=== PATIENT | male | born 1945 | race Caucasian/White ===

== ENCOUNTER → 2020-09-05 | Outpatient (CLI) | payer OTHER ==
[~2020-09-05] MED LIST: CHOL10003 PO; COLC0.6T50 PO; FINA5TAB4 PO; TAMS-11 PO; ZINC PO
[2020-09-05 10:45] LABS: BASOPHILS % (AUTO) 1 % (0-1); EOSINOPHILS % (AUTO) 1 % (1-7); LYMPHOCYTES % (AUTO) 22 % (22-44); MD NO; MEAN CORPUSCULAR HEMOGLOBIN 30.2 pg (27.5-34.5); MEAN CORPUSCULAR HGB CONC 34.7 g/dL (33.2-36.2); MEAN PLATELET VOLUME 8.4 fL (7.4-10.4); MONOCYTES % (AUTO) 10 % (2-9); NEUTROPHILS % (AUTO) 66 % (42-75); PLATELET COUNT 187 x10^3/uL (130-400); RED BLOOD COUNT 4.88 x10^6/uL (4.38-5.82); RED CELL DISTRIBUTION WIDTH 13.9 % (9.4-14.8)
[2020-09-05 10:48] LABS: MICROSCOPIC NOT IND
[2020-09-05 10:53] LABS: ALANINE AMINOTRANSFERASE 22 U/L (12-78); ALBUMIN 4.3 g/dL (3.4-5.0); ANION GAP 5 mmol/L (5-15); CHLORIDE 110 mmol/L (98-107); CREATININE 1.31 mg/dL (0.7-1.3)
[2020-09-05 10:54] LABS: INTERNATIONAL NORMALIZED RATIO 1.09 (0.93-1.1); PROTHROMBIN TIME 11.6 Seconds (9.6-11.5)
[2020-09-05 10:55] LABS: ALKALINE PHOSPHATASE 52 U/L (45-117); BILIRUBIN,TOTAL 1.1 mg/dL (0.2-1.0); TOTAL PROTEIN 7.4 g/dL (6.4-8.2)
== END | disposition home or self-care (01) ==
LOC: STAR 08:57
PROVIDERS: ATTEND Neurological Surgery
DX: Z01.812 Encounter for preprocedural laboratory examination (principal); Z01.811 Encounter for preprocedural respiratory examination; Z20.822 Contact with and (suspected) exposure to COVID-19; Z01.810 Encounter for preprocedural cardiovascular examination; M47.892 Other spondylosis, cervical region; M48.02 Spinal stenosis, cervical region; R79.1 Abnormal coagulation profile; R82.90 Unspecified abnormal findings in urine; R94.31 Abnormal electrocardiogram [ECG] [EKG]; I77.810 Thoracic aortic ectasia; M50.321 Other cervical disc degeneration at C4-C5 level
CPT/HCPCS: 71046; 72052; 80053; 81003; 85025; 85610; 85730; 87635; 93005

== ENCOUNTER 2020-09-11 08:06 | Inpatient (IN) | payer OTHER ==
[~2020-09-11] VITALS: Ht 177.8 cm; Wt 83.6 kg
[~2020-09-11 08:06] MED LIST changes: +BACITRACIN 50,000 UNIT ONE; +BUPIVACAINE/PF 0.25% ONE; +EPINEPHRINE 1 MG/ML, 1ML ONE; +VANCOMYCIN 1,000 MG ONE
[2020-09-11] MEDS ORDERED: FENTANYL PF 250 MCG/5ML ONE ×2 (08:18→12:22)
[2020-09-11] MEDS ORDERED: PROPOFOL 10 MG/ML, 20ML ONE (08:28)
[2020-09-11] MEDS ORDERED: DEXAMETHASONE 4 MG/ML, 1ML ONE (08:28)
[2020-09-11] MEDS ORDERED: CEFAZOLIN 1,000 MG ONE (08:28)
[2020-09-11] MEDS ORDERED: ONDANSETRON 2MG/ML, 2ML ONE (08:28)
[2020-09-11] MEDS ORDERED: GLYCOPYRROLATE 0.2MG/1ML, 5ML ONE (08:28)
[2020-09-11] MEDS ORDERED: SUCCINYLCHOLINE 20 MG/ML, 10ML ONE (08:28)
[2020-09-11] MEDS ORDERED: ROCURONIUM 10MG/ML,5ML ONE (08:28)
[2020-09-11] MEDS ORDERED: NEOSTIGMINE 1 MG/ML, 10ML ONE (08:28)
[2020-09-11] MEDS ORDERED: CHLORHEXIDINE 15 ML UDC MM ONE (08:30)
[2020-09-11] MEDS ORDERED: LACTATED RINGERS 1,000 ML IV SCH (08:30)
[2020-09-11 08:33] VITALS: BP 149/83
[2020-09-11] MEDS ORDERED: REMIFENTANIL 2 MG ONE (09:20)
[2020-09-11] MEDS ORDERED: PHENYLEPHRINE 10 MG/ML ONE (09:51)
[2020-09-11] MEDS ORDERED: BACITRACIN OINT 500U/GM, 15 GM ONE (12:25)
[2020-09-11] MEDS ORDERED: FENTANYL PF 100 MCG/2ML ONE (13:27)
[2020-09-11] MEDS ORDERED: OXYcodone 5 MG/5 ML ORAL.SOL UDC ONE (13:27)
[2020-09-11] MEDS ORDERED: ACETAMINOPHEN 650 MG/20.3 ML UDC ONE (13:27)
[2020-09-11] MEDS ORDERED: METHOCARBAMOL 1,000 MG in DEXTROSE 5% 100 ML IV ONE ×2 (13:30→15:30)
[2020-09-11] MEDS: FENTANYL PF 100 MCG/2ML IV PRN ×3 (13:30→13:42)
[2020-09-11] MEDS ORDERED: PROMETHAZINE 25 MG/ML, 1ML IVPush PRN (14:00)
[2020-09-11] MEDS ORDERED: HYDROmorphone 1 MG/ML, 1ML INJ IVPush PRN (14:00)
[2020-09-11] MEDS ORDERED: LABETALOL 5MG/ML, 20ML IV PRN ×2 (14:00→15:30)
[2020-09-11] MEDS ORDERED: ACETAMINOPHEN 325 MG TABLET PO PRN (14:00)
[2020-09-11] MEDS ORDERED: ONDANSETRON 2MG/ML, 2ML IVPush PRN (14:00)
[2020-09-11] MEDS ORDERED: EPHEDRINE 50 MG/ML, 1ML IVPush PRN (14:00)
[2020-09-11] MEDS ORDERED: OXYcodone 5 MG/5 ML ORAL.SOL UDC PO PRN (14:00)
[2020-09-11] MEDS ORDERED: METHOCARBAMOL 1,000 MG in DEXTROSE 5% 100 ML IV PRN (14:00)
[2020-09-11] MEDS ORDERED: LORazepam 2 MG/ML, 1ML IVPush PRN (14:00)
[2020-09-11] MEDS ORDERED: hydrALAzine 20 MG/ML, 1ML IV PRN (14:00)
[2020-09-11] MEDS ORDERED: MEPERIDINE/PF 25MG/0.5ML IVPush PRN (14:00)
[2020-09-11] MEDS ORDERED: HYDROmorphone 1 MG/ML, 1ML INJ ONE (14:10)
[2020-09-11] MEDS ORDERED: HYDROcodone/APAP 5/325 TABLET PO PRN (15:30)
[2020-09-11] MEDS ORDERED: LABETALOL 5MG/ML, 20ML IV SCH (15:30)
[2020-09-11] MEDS ORDERED: CEFAZOLIN PMX 1GM/50ML 50 ML IVPB SCH (15:30)
[2020-09-11] MEDS ORDERED: DIPHENHYDRAMINE 50 MG/ML, 1ML IVPush PRN (15:30)
[2020-09-11] MEDS ORDERED: HYDROmorphone 2 MG/ML, 1ML IM PRN (15:30)
[2020-09-11] MEDS ORDERED: DIPHENHYDRAMINE 50 MG/ML, 1ML IM PRN (15:30)
[2020-09-11] MEDS ORDERED: BISACODYL 10 MG SUPP PR PRN (15:30)
[2020-09-11] MEDS ORDERED: METHOCARBAMOL 750 MG TABLET PO SCH (15:30)
[2020-09-11] MEDS ORDERED: PROMETHAZINE 25 MG/ML, 1ML IM PRN (15:30)
[2020-09-11] MEDS ORDERED: METHOCARBAMOL 750 MG in DEXTROSE 5% 100 ML IV SCH (15:30)
[2020-09-11] MEDS ORDERED: DIPHENHYDRAMINE 25 MG CAPSULE PO PRN (15:30)
[2020-09-11] MEDS: CEFAZOLIN PMX 1GM/50ML 50 ML IVPB SCH (16:55)
[2020-09-11] MEDS: OXYcodone IR 5MG TABLET PO PRN (16:55)
[2020-09-11] MEDS: NS + 20MEQ KCL 1,000 ML IV SCH (16:55)
[2020-09-11 19:54] VITALS: BP 138/83
[2020-09-11] MEDS: METHOCARBAMOL 750 MG in DEXTROSE 5% 100 ML IV SCH (22:42)
[2020-09-12 00:08] VITALS: BP 136/78
[2020-09-12] MEDS: ONDANSETRON 2MG/ML, 2ML IV PRN ×3 (00:39→17:52)
[2020-09-12] MEDS: OXYcodone IR 5MG TABLET PO PRN ×7 (00:40→20:58)
[2020-09-12] MEDS: CEFAZOLIN PMX 1GM/50ML 50 ML IVPB SCH (02:49)
[2020-09-12 03:55] VITALS: BP 133/76
[2020-09-12] MEDS: NS + 20MEQ KCL 1,000 ML IV SCH ×2 (04:00→07:29)
[2020-09-12] MEDS: MAGNESIUM HYDROXIDE 8%, 30ML UDC PO PRN (05:15)
[2020-09-12] MEDS: METHOCARBAMOL 750 MG in DEXTROSE 5% 100 ML IV SCH ×3 (07:28→21:48)
[2020-09-12 08:07] VITALS: BP 131/70
[2020-09-12] MEDS: SENNA/DOCUSATE TABLET PO SCH (08:20)
[2020-09-12 13:48] VITALS: BP 117/62
[2020-09-12] MEDS: ENOXAPARIN 40 MG/0.4 ML SQ SCH (13:55)
[2020-09-12 19:15] VITALS: BP 150/75
[2020-09-13] MEDS: OXYcodone IR 5MG TABLET PO PRN ×7 (00:18→20:41)
[2020-09-13] MEDS: ONDANSETRON 2MG/ML, 2ML IV PRN ×2 (00:18→05:17)
[2020-09-13] MEDS: MAGNESIUM HYDROXIDE 8%, 30ML UDC PO PRN (00:57)
[2020-09-13 01:02] VITALS: BP 157/78
[2020-09-13] MEDS: METHOCARBAMOL 750 MG in DEXTROSE 5% 100 ML IV SCH ×2 (05:17→15:02)
[2020-09-13 06:04] LABS: CREATININE 1.19 mg/dL (0.7-1.3)
[2020-09-13 07:00] VITALS: BP 159/86
[2020-09-13] MEDS: SENNA/DOCUSATE TABLET PO SCH (08:22)
[2020-09-13] MEDS: NS + 20MEQ KCL 1,000 ML IV SCH ×3 (08:24→18:31)
[2020-09-13] MEDS: CEFAZOLIN PMX 2GM/50ML 50 ML IVPB SCH ×2 (10:34→18:02)
[2020-09-13 12:55] VITALS: BP 150/81
[2020-09-13] MEDS: ENOXAPARIN 40 MG/0.4 ML SQ SCH (13:12)
[2020-09-13 19:17] VITALS: BP 151/74
[2020-09-13] MEDS: METHOCARBAMOL 750 MG TABLET PO SCH (22:35)
[2020-09-14] MEDS: CEFAZOLIN PMX 2GM/50ML 50 ML IVPB SCH ×2 (01:45→10:21)
[2020-09-14 02:49] VITALS: BP 138/77
[2020-09-14] MEDS: METHOCARBAMOL 750 MG TABLET PO SCH (06:23)
[2020-09-14 07:59] VITALS: BP 151/77
[2020-09-14] MEDS: NS + 20MEQ KCL 1,000 ML IV SCH (08:00)
[2020-09-14] MEDS: OXYcodone IR 5MG TABLET PO PRN (08:35)
[2020-09-14] MEDS: SENNA/DOCUSATE TABLET PO SCH (08:36)
[2020-09-14] MEDS ORDERED: METH2TAB PO (09:15)
[2020-09-14] MEDS ORDERED: METH750T87 PO (09:16)
[2020-09-14] MEDS ORDERED: OXYC-307 PO (09:16)
== END 2020-09-14 11:27 | disposition home or self-care (01) | DRG 472 ==
LOC: ORIP 08:06 → 4NE 14:35 → DCLOUNGE 09-14 11:20
PROVIDERS: ADMIT Neurological Surgery; ATTEND Neurological Surgery
PROC: 0RG4071 Fusion of Cervicothoracic Vertebral Joint with Autologous Tissue Substitute, Posterior Approach, Posterior Column, Open Approach (ICD-10-PCS; 2020-09-11)
PROC: 00NW0ZZ Release Cervical Spinal Cord, Open Approach (ICD-10-PCS; 2020-09-11)
PROC: 00NX0ZZ Release Thoracic Spinal Cord, Open Approach (ICD-10-PCS; 2020-09-11)
PROC: 01N10ZZ Release Cervical Nerve, Open Approach (ICD-10-PCS; 2020-09-11)
PROC: 01N80ZZ Release Thoracic Nerve, Open Approach (ICD-10-PCS; 2020-09-11)
PROC: 4A11X4G Monitoring of Peripheral Nervous Electrical Activity, Intraoperative, External Approach (ICD-10-PCS; 2020-09-11)
PROC: 0TPBX0Z Removal of Drainage Device from Bladder, External Approach (ICD-10-PCS; 2020-09-11)
PROC: 0T9B80Z Drainage of Bladder with Drainage Device, Via Natural or Artificial Opening Endoscopic (ICD-10-PCS; 2020-09-11)
PROC: 0RG2071 Fusion of 2 or more Cervical Vertebral Joints with Autologous Tissue Substitute, Posterior Approach, Posterior Column, Open Approach (ICD-10-PCS; principal; 2020-09-11 10:00)
DX: M48.02 Spinal stenosis, cervical region (principal); M47.12 Other spondylosis with myelopathy, cervical region; M43.12 Spondylolisthesis, cervical region; N40.1 Benign prostatic hyperplasia with lower urinary tract symptoms; R33.8 Other retention of urine; Z79.899 Other long term (current) drug therapy
CPT/HCPCS: 36415; 72040; 82565; 84520; 86850; 86900; 95938; 95941; C1713; G0378; J0171; J0690; J1100; J1170; J1650; J2405; J2550; J2704; J2710; J3010; J3370; J3480; C1762; C1769; J0330; J2370; J2800; J7120